=== PATIENT | female | born 1965 | race Two or more races ===

== ENCOUNTER 2018-09-24 11:12 | Day surgery (SDC) | payer OTHER ==
[2018-09-24] MEDS ORDERED: MIDAZOLAM 1 MG/ML 2 ML INJ ×2 (13:49)
[2018-09-24] MEDS ORDERED: FENTAnyl 50 MCG/ML VIAL (13:50)
== END 2018-09-24 16:45 | disposition home or self-care (01) ==
LOC: GIL 11:12
DX: Z12.11 Encounter for screening for malignant neoplasm of colon (principal); D12.4 Benign neoplasm of descending colon; D12.5 Benign neoplasm of sigmoid colon; E78.5 Hyperlipidemia, unspecified
CPT/HCPCS: 45380; 88305